=== PATIENT | male | born 1990 ===

== ENCOUNTER 2023-06-05 02:04 | Emergency (ER) | payer MEDICAID ==
[~2023-06-05] VITALS: Ht 175.3 cm; Wt 72.0 kg
[2023-06-05 02:22] VITALS: BP 130/70; PULSE 89; RESP 17; TEMP 98.2
== END 2023-06-05 02:55 | disposition home or self-care (01) ==
LOC: EMS 02:06
DX: F15.10 Other stimulant abuse, uncomplicated (principal); F41.9 Anxiety disorder, unspecified
CPT/HCPCS: 93005; 99283